=== PATIENT | female | born 1985 | race Caucasian/White ===

== ENCOUNTER 2024-02-24 20:16 | Emergency (ER) | payer OTHER ==
[2024-02-24 20:33] VITALS: BP 112/64; PULSE 62; RESP 16; TEMP 97.8; BMI 30.9
[2024-02-24] MEDS ORDERED: IBUPROFEN 400 MG TABLET (FP) PO ONE (21:06)
[2024-02-24] MEDS ORDERED: ACETAMINOPHEN 500 MG TABLET (FP) ONE (21:06)
[2024-02-24] MEDS: IBUPROFEN 400 MG TABLET (FP) PO ONE (21:09)
[2024-02-24] MEDS: ACETAMINOPHEN 500 MG TABLET (FP) PO ONE (21:09)
== END 2024-02-24 22:33 | disposition home or self-care (01) ==
LOC: JERFT 20:16
DX: S40.022A Contusion of left upper arm, initial encounter (principal); R07.81 Pleurodynia; M25.561 Pain in right knee; M25.562 Pain in left knee; M25.461 Effusion, right knee; M25.462 Effusion, left knee; V49.50XA Passenger injured in collision with unspecified motor vehicles in traffic accident, initial encounter
CPT/HCPCS: 71046-TC-FY; 71111-TC-FY; 93005; 93010; 99284-25

== ENCOUNTER 2024-02-29 19:08 | Emergency (ER) | payer SELFPAY ==
[2024-02-29 19:22] VITALS: BP 103/79; PULSE 63; RESP 17; TEMP 97.5; BMI 26.4
[2024-02-29 19:41] LABS: EPI CELLS 24 /uL (0-25.1); HYALINE CASTS 0 /uL (0-3.1); PH,URINE 5.5 (5.0-8.0); URINE APPEARANCE CLEAR; URINE BACTERIA >9,000 /uL (0-1359); URINE BILIRUBIN NEGATIVE (NEGATIVE); URINE COLOR YELLOW; URINE GLUCOSE (UA) NEGATIVE (NEGATIVE); URINE KETONE NEGATIVE (NEGATIVE); URINE LEUK ESTERASE NEGATIVE (NEGATIVE); URINE NITRITE NEGATIVE (NEGATIVE); URINE PROTEIN NEGATIVE (NEGATIVE); URINE RBC 5 /uL (0-23.9); URINE UROBILINOGEN 0.2 mg/dL (0.2-1.0); URINE WBC 51 /uL (0-25.8)
[2024-02-29] MEDS ORDERED: FLUCONAZOLE 150 MG TABLET PO ONE (20:28)
[2024-02-29] MEDS ORDERED: NITROFURANTOIN MACROCRYSTAL 50 MG CAPSULE (FP) ONE (20:28)
[2024-02-29] MEDS: FLUCONAZOLE 150 MG TABLET PO ONE (20:43)
[2024-02-29] MEDS: NITROFURANTOIN MONOHYD/M-CRYST 100 MG CAPSULE PO ONE (20:43)
== END 2024-02-29 21:12 | disposition home or self-care (01) ==
LOC: JER 19:08
DX: N39.0 Urinary tract infection, site not specified (principal); N89.8 Other specified noninflammatory disorders of vagina
CPT/HCPCS: 36415; 81003; 87086; 87186; 87491; 87591; 99283-25

== ENCOUNTER 2024-11-12 15:53 | Emergency (ER) | payer OTHER ==
[2024-11-12 16:12] VITALS: BP 110/60; PULSE 73; RESP 20; TEMP 98.3; BMI 26.3
[2024-11-12 16:47] LABS: EPI CELLS 21 /uL (0-25.1); HYALINE CASTS 0 /uL (0-3.1); URINE APPEARANCE CLEAR; URINE BACTERIA 101 /uL (0-1359); URINE BILIRUBIN NEGATIVE (NEGATIVE); URINE COLOR YELLOW; URINE GLUCOSE (UA) NEGATIVE (NEGATIVE); URINE KETONE NEGATIVE (NEGATIVE); URINE LEUK ESTERASE NEGATIVE (NEGATIVE); URINE NITRITE NEGATIVE (NEGATIVE); URINE PROTEIN NEGATIVE (NEGATIVE); URINE RBC 17 /uL (0-23.9); URINE WBC 5 /uL (0-25.8)
[2024-11-12] MEDS ORDERED: FLUCONAZOLE 150 MG TABLET PO ONE (17:05)
[2024-11-12] MEDS: FLUCONAZOLE 150 MG TABLET PO ONE (17:13)
== END 2024-11-12 17:13 | disposition home or self-care (01) ==
LOC: JER 15:53
DX: N89.8 Other specified noninflammatory disorders of vagina (principal); B37.31 Acute candidiasis of vulva and vagina
CPT/HCPCS: 81003; 84703; 87086; 99283-25